=== PATIENT | female | born 1945 | race African-American/Black ===

== ENCOUNTER 2019-08-09 20:47 | Emergency (ER) | payer OTHER ==
[~2019-08-09] VITALS: Ht 165.1 cm; Wt 58.1 kg
[2019-08-09 20:57] VITALS: Ht 165.1 cm; Wt 58.1 kg
[2019-08-09 21:53] LABS: BASOPHIL % 0.8 % (0-2); PLATELET COUNT 190 x10^3mcL (130-400); RED CELL DISTRIBUTION WIDTH 14.1 % (11.5-14.5)
[2019-08-09 22:09] LABS: CALCIUM 9.4 mg/dL (8.5-10.1); CARBON DIOXIDE 29.1 mmol/L (21-32); CHLORIDE SERUM 105 mmol/L (98-107); CREATININE SERUM 0.9 mg/dL (0.6-1.0); GLUCOSE SERUM 107 mg/dL (74-106); POTASSIUM SERUM 4.5 mmol/L (3.5-5.1); SODIUM SERUM 141 mmol/L (136-145)
[2019-08-09 22:14] LABS: ALBUMIN 3.4 g/dL (3.4-5.0); ALKALINE PHOSPHATASE 111 U/L (46-116); ALT/SGPT 23 U/L (14-59); AST/SGOT 22 U/L (15-37); BILIRUBIN TOTAL 0.35 mg/dL (0.20-1.00); TOTAL PROTEIN, SERUM 7.1 g/dL (6.4-8.2)
[2019-08-10 00:40] VITALS: BP 112/67
== END 2019-08-10 00:40 | disposition home or self-care (01) ==
LOC: ED 20:47
PROVIDERS: Student in an Organized Health Care Education/Training Program
DX: R53.1 Weakness (principal); M25.562 Pain in left knee; M25.561 Pain in right knee; I10 Essential (primary) hypertension
CPT/HCPCS: 36415; Q0092